=== PATIENT | female | born 1990 | race Caucasian/White ===

== ENCOUNTER 2020-01-20 00:37 | Emergency (ER) | payer OTHER ==
[~2020-01-20] VITALS: Ht 167.6 cm; Wt 68.0 kg
[2020-01-20 03:39] VITALS: BP 106/50
== END 2020-01-20 03:40 | disposition home or self-care (01) ==
LOC: M.ERS 00:37
DX: G43.909 Migraine, unspecified, not intractable, without status migrainosus (principal)

== ENCOUNTER 2020-01-29 06:31 | Emergency (ER) | payer OTHER ==
[~2020-01-29] VITALS: Ht 167.6 cm; Wt 61.2 kg
[2020-01-29 08:08] VITALS: BP 108/67
== END 2020-01-29 08:09 | disposition home or self-care (01) ==
LOC: M.ERS 06:31
DX: G43.909 Migraine, unspecified, not intractable, without status migrainosus (principal); Z90.49 Acquired absence of other specified parts of digestive tract; Z85.43 Personal history of malignant neoplasm of ovary; Z85.028 Personal history of other malignant neoplasm of stomach